=== PATIENT | female | born 1985 | race Two or more races ===

== ENCOUNTER 2020-07-17 09:49 | Emergency (ER) | payer MEDICAID, SELFPAY ==
[2020-07-17 09:57] VITALS: BP 174/89; PULSE 73; RESP 16; TEMP 36.7; O2SAT 99; BMI 36.7
--- NOTE | 2020-07-17 10:32 | ED.GENADULT ---
HPI - General Adult General Chief complaint: Neck Pain/Injury Stated complaint: SWOLLEN GLANDS Time Seen by Provider: 07/17/20 10:29 History of Present Illness HPI narrative: Patient complains of swollen glands that are mildly painful on the right side of her neck for past 2 days, she has no sore throat no ear pain no toothache no fever and denies any other complaint This started 2 days ago, pain is mild, she has not tried to treat it in any way, it does not radiate Related Data Previous Rx's Medication Instructions Recorded amoxicillin 500 mg PO TID #21 cap 07/17/20 ibuprofen 600 mg PO Q6H PRN #20 tab 07/17/20 Allergies Allergy/AdvReac Type Severity Reaction Status Date / Time Sulfa (Sulfonamide Allergy Unknown HIVES Unverified 06/03/20 18:21 Antibiotics) [SULFA(SULFONAMIDE ANTIBIOTICS)] sulfa Allergy Intermediate Swelling Uncoded 07/17/20 09:59 Review of Systems Review of Systems: There is no fever no chills no difficulty breathing no difficulty swallowing no sore throat no ear pain no sinus pain no nausea no vomiting no cough no rash PMFSH Past Medical History Source: nursing notes reviewed Medical History (Updated 07/17/20 @ 10:39 by CIARRA Holbrook) GERD (gastroesophageal reflux disease) Hiatal hernia Migraines Social History Social History Advance Directives: No Advance Directives Information Provided: No Physical Exam Vital Signs: Vital Signs: Vital Signs Temp Pulse Resp BP Pulse Ox 07/17/20 09:57 98.1 F 73 16 174/89 H 99 Body Mass Index 36.7 Patient is A&O x3 comfortable no distress The ear exam was normal on both sides with normal tympanic membrane no swelling of the ear canal The eyes were clear no redness or discharge The pharynx was moist, very mild redness no tonsillar swelling no exudate no drooling no impairment of breathing or swallowing the neck exam there was right submandibular swelling consistent with lymphadenopathy, there was no abscess no redness no warmth, the voice was normal, the neck was supple The chest was clear to auscultation bilaterally, no respiratory distress The heart no murmurs Abdomen soft nontender next item line the extremities full range of motion x4 The skin no rashes and the neuro no focal deficit Discharge Plan Discharge Clinical Impression: Lymphadenopathy Patient Disposition: Home, Self-Care Instructions: Lymphadenopathy (ED) Additional Instructions: Follow with primary doctor in 1 week if not better Return to ER any time any worse condition or concerns Prescriptions: New amoxicillin 500 mg capsule 500 mg PO TID Qty: 21 RF: 0 ibuprofen 600 mg tablet 600 mg PO Q6H PRN (Reason: fever or pain) Qty: 20 RF: 0 Interventions: ED Discharge Assessment Last Done: 07/17/20 10:43 Discharge Date/Time: 07/17/20 10:45
== END 2020-07-17 10:45 | disposition home or self-care (01) ==
PROVIDERS: Physician Assistant Medical; Emergency Provider Emergency Medicine; PCP Internal Medicine
DX: R59.1 Generalized enlarged lymph nodes (principal); Z11.59 Encounter for screening for other viral diseases
CPT/HCPCS: 99283; U0003

== ENCOUNTER 2020-09-12 19:33 | Emergency (ER) | payer MEDICAID, SELFPAY ==
--- NOTE | 2020-09-12 | ECG_ITS ---
Test Reason : CHEST PAIN Blood Pressure : / mmHG Vent. Rate : 070 BPM Atrial Rate : 070 BPM P-R Int : 112 ms QRS Dur : 084 ms QT Int : 414 ms P-R-T Axes : 057 049 041 degrees QTc Int : 447 ms Normal sinus rhythm Normal ECG When compared with ECG of 07-JUN-2020 21:19, No significant change was found Referred By: Generic ED Physician Electronically Signed By:GONZALO MACARIO
[2020-09-12 19:54] VITALS: BP 145/87; PULSE 86; RESP 16; TEMP 36.8; O2SAT 95; BMI 87.0
--- NOTE | 2020-09-12 22:26 | ED.GENADULT ---
HPI - General Adult General Chief complaint: General Medical Stated complaint: high bp, headache Time Seen by Provider: 09/12/20 21:59 Source: patient Mode of arrival: ambulatory History of Present Illness HPI narrative: This is a 35-year-old female with significant past medical history hypertension and states that she has been out of her medication 3 months and said that today she began experiencing a ?tension-like headache? without any associated speech/visual/unilateral numbness/tingling/weakness but then later in the day after using over the counter Tylenol she began experiencing some mild dizziness and describes some central chest pressure that was nonradiating in character and not associated nausea or diaphoresis. Patient states she does suffer from anxiety and had checked her blood pressure and found that it was 140s over 100s. Otherwise, patient states that she has been in her usual state of health. Related Data Previous Rx's Medication Instructions Recorded amoxicillin 500 mg PO TID #21 cap 07/17/20 ibuprofen 600 mg PO Q6H PRN #20 tab 07/17/20 Allergies Allergy/AdvReac Type Severity Reaction Status Date / Time Sulfa (Sulfonamide Allergy Unknown HIVES Verified 09/12/20 20:10 Antibiotics) [SULFA(SULFONAMIDE ANTIBIOTICS)] sulfa Allergy Intermediate Swelling Uncoded 07/17/20 09:59 Review of Systems Review of Systems: Pertinent positives and negatives as stated in HPI 10 point review of systems is otherwise negative. PMFSH Past Medical History Medical History (Updated 09/12/20 @ 23:38 by Deborah Blevins MD) GERD (gastroesophageal reflux disease) Hiatal hernia Hypertension Migraines Social History Social History Alcohol intake: never Smoked in Last 30 Days: No Use of substances other than those prescribed or required for medical reasons: No Advance Directives: No Physical Exam Vital Signs: Vital Signs: Last Vital Signs Temp 99.0 F 09/12/20 22:33 Pulse 70 09/12/20 22:33 Resp 20 09/12/20 22:33 BP 138/72 09/12/20 22:33 Pulse Ox 100 09/12/20 22:33 Body Mass Index 87.0 VITAL SIGNS: Reviewed. GENERAL: Well developed, well nourished, in no acute distress. HEAD: Normocephalic/atraumatic, EYES: PERRLA, EOMI intact without pain OROPHARYNX: no oral lesions noted, posterior pharynx clear and non-erythematous without noted tonsillar enlargement/erythema/exudates NECK: Supple, no adenopathy LUNGS: Normal breath sounds. No adventitious sounds or accessory muscle use. SpO2<95> CARDIOVASCULAR: Regular rate and rhythm without noted murmurs, no JVD or lower extremity edema. ABDOMEN: Soft, non-tender, non-distended with bowel sounds. No rigidity. No guarding. No palpable masses or hernias noted NEUROLOGIC: Alert and oriented x 4. Strength and sensation to light touch were grossly intact x 4. Course Course Course Narrative: This is a 35-year-old female with history and clinical presentation consistent with likely headache secondary to stressors described in patient's life with job and bills, but will rule out end-organ complications associated with elevated blood pressure. -labs, UA, EKG, U preg On review of all investigations no acute fine, high sensitivity troponin within normal limits and no changes on EKG. In addition no evidence of protein within the urine or changes in renal function. All results and findings were discussed with the patient at bedside and she was strongly encouraged to reach out to [facility] in the morning for blood pressure medication. Medical Decision Making Lab Data Result diagrams: 09/12/20 22:18 09/12/20 22:18 Labs: Lab Results 09/12/20 09/12/20 09/12/20 Range/Units 22:17 22:18 22:18 WBC 11.6 H (4.8-10.8) X10*3/uL RBC 3.83 L (4.20-5.50) X10*6/uL Hgb 11.3 L (12.0-16.0) g/dl Hct 35.2 L (37-47) % MCV 91.9 (80-98) fL MCH 29.5 (27.0-33.0) pg MCHC 32.1 (31.0-35.0) g/dl RDW 12.3 (11.0-16.0) % Plt Count 414 H (160-400) X10*3/uL MPV 9.8 (9.4-12.3) fL Immature Gran % (Auto) 0.3 (0.0-0.4) % Neut % (Auto) 46.4 (45-73) % Lymph % (Auto) 43.3 H (20-40) % [place] % (Auto) 6.0 (2-11) % Eos % (Auto) 3.5 (0-4) % Baso % (Auto) 0.5 (0-2) % Lymph # (Auto) 5.0 H (1.2-4.9) X10*3/uL [place] # (Auto) 0.7 (0.1-1.2) X10*3/uL Eos # (Auto) 0.4 (0.0-0.4) X10*3/uL Baso # (Auto) 0.1 (0.0-0.2) X10*3/uL Abs Immat Gran (auto) 0.03 (0.00-0.03) X10*3/uL Absolute Neuts (auto) 5.4 (2.0-8.3) X10*3/uL Absolute Nucleated RBC 0.000 (0.0-0.012) X10*3/uL Nucleated RBC % (auto) 0.0 (0.0-0.2) /100WBC Smear Tech's Comments VERIFIED Sodium 138 (135-145) mmol/L Potassium 4.3 (3.3-5.1) mmol/l Chloride 104 (96-108) mmol/L Carbon Dioxide 27 (22-29) mmol/L Anion Gap 11 L (12-20) BUN 12 (9-16) mg/dL Creatinine 0.78 (0.5-1.4) mg/dL Estim Creat Clear Calc 202.1 Estimated GFR > 60 Random Glucose 79 (60-115) mg/dL Calcium 8.5 (8.4-10.2) mg/dL Total Bilirubin 0.2 (0.0-1.0) mg/dL AST 15 (5-31) U/L ALT 13 (0-31) U/L Alkaline Phosphatase 65 (39-117) U/L Troponin I High Sens (<3.5-17.0) ng/L Total Protein 7.1 (6.5-8.0) g/dL Albumin 4.1 (3.5-5.0) g/dL Urine Color YELLOW Urine Appearance CLEAR Urine pH 6.5 (5.0-8.0) Ur Specific [place] 1.025 (1.005-1.025) Urine Protein NEG (NEG-TRACE) MG/DL Urine Glucose (UA) NEG (NEG) MG/DL Urine Ketones NEG (NEG) MG/DL Urine Blood NEG (NEG) Urine Nitrite NEG (NEG) Ur Leukocyte Esterase NEG (NEG) Urine Test NEGATIVE (NEGATIVE) 09/12/20 Range/Units 22:18 WBC (4.8-10.8) X10*3/uL RBC (4.20-5.50) X10*6/uL Hgb (12.0-16.0) g/dl Hct (37-47) % MCV (80-98) fL MCH (27.0-33.0) pg MCHC (31.0-35.0) g/dl RDW (11.0-16.0) % Plt Count (160-400) X10*3/uL MPV (9.4-12.3) fL Immature Gran % (Auto) (0.0-0.4) % Neut % (Auto) (45-73) % Lymph % (Auto) (20-40) % [place] % (Auto) (2-11) % Eos % (Auto) (0-4) % Baso % (Auto) (0-2) % Lymph # (Auto) (1.2-4.9) X10*3/uL [place] # (Auto) (0.1-1.2) X10*3/uL Eos # (Auto) (0.0-0.4) X10*3/uL Baso # (Auto) (0.0-0.2) X10*3/uL Abs Immat Gran (auto) (0.00-0.03) X10*3/uL Absolute Neuts (auto) (2.0-8.3) X10*3/uL Absolute Nucleated RBC (0.0-0.012) X10*3/uL Nucleated RBC % (auto) (0.0-0.2) /100WBC Smear Tech's Comments Sodium (135-145) mmol/L Potassium (3.3-5.1) mmol/l Chloride (96-108) mmol/L Carbon Dioxide (22-29) mmol/L Anion Gap (12-20) BUN (9-16) mg/dL Creatinine (0.5-1.4) mg/dL Estim Creat Clear Calc Estimated GFR Random Glucose (60-115) mg/dL Calcium (8.4-10.2) mg/dL Total Bilirubin (0.0-1.0) mg/dL AST (5-31) U/L ALT (0-31) U/L Alkaline Phosphatase (39-117) U/L Troponin I High Sens < 3.5 (<3.5-17.0) ng/L Total Protein (6.5-8.0) g/dL Albumin (3.5-5.0) g/dL Urine Color Urine Appearance Urine pH (5.0-8.0) Ur Specific [place] (1.005-1.025) Urine Protein (NEG-TRACE) MG/DL Urine Glucose (UA) (NEG) MG/DL Urine Ketones (NEG) MG/DL Urine Blood (NEG) Urine Nitrite (NEG) Ur Leukocyte Esterase (NEG) Urine Test (NEGATIVE) ECG Data Attestation: I personally reviewed and interpreted this ECG as follows: Prior ECG tracings: available for review (06/07/2020 no acute changes on comparison) Interpretation: Normal sinus rhythm, HR -70, no evidence of acute ischemia, MD/QRS/QTC are within normal limits. Discharge Plan Discharge Clinical Impression: Hypertension Qualifiers: Hypertension type: unspecified Qualified Code(s): I10 - Essential (primary) hypertension Patient Disposition: Home, Self-Care Instructions: DASH Eating Plan (ED), Heart Healthy Diet (ED), Hypertension (ED) Additional Instructions: Please follow-up with your primary care provider 1st thing in the morning. Please review the dietary changes recommended to assist and blood pressure control. The patient and/or family acknowledge understanding of results (as applicable), diagnosis, treatment plan, need for follow up, and symptoms that should prompt a return to the emergency room. Prescriptions: No Action amoxicillin 500 mg capsule 500 mg PO TID Qty: 21 RF: 0 ibuprofen 600 mg tablet 600 mg PO Q6H PRN (Reason: fever or pain) Qty: 20 RF: 0 Referrals: [facility] [Outside] - 1 day (Patient evaluated in the emergency department for hypertension and states that she has reached out multiple times for refills on her blood pressure medication. Please schedule for re-evaluation and outpatient management of hypertension.)
[2020-09-12 22:33] VITALS: BP 138/72; PULSE 70; RESP 20; TEMP 37.2; O2SAT 100
[2020-09-12 22:36] LABS: Basophils Absolute Auto 0.1 X10*3/uL (0.0-0.2); Basophils Percent Auto 0.5 % (0-2); Eosinophils Absolute Auto 0.4 X10*3/uL (0.0-0.4); Eosinophils Percent Auto 3.5 % (0-4); Hematocrit 35.2 % (37-47); Hemoglobin 11.3 g/dl (12.0-16.0); Imm Gran Abs Auto 0.03 X10*3/uL (0.00-0.03); Imm Gran Pct Auto 0.3 % (0.0-0.4); Lymphocytes Percent Auto 43.3 % (20-40); Mean Corpuscular HGB Conc 32.1 g/dl (31.0-35.0); Mean Corpuscular Hemoglobin 29.5 pg (27.0-33.0); Mean Corpuscular Volume 91.9 fL (80-98); Mean Platelet Volume 9.8 fL (9.4-12.3); Monocytes Absolute Auto 0.7 X10*3/uL (0.1-1.2); Neutrophils Absolute Auto 5.4 X10*3/uL (2.0-8.3); Neutrophils Percent Auto 46.4 % (45-73); Platelet Count 414 X10*3/uL (160-400); Red Blood Count 3.83 X10*6/uL (4.20-5.50); Red Cell Distribution Width 12.3 % (11.0-16.0); SCAN SMEAR FLAG 1; White Blood Count 11.6 X10*3/uL (4.8-10.8)
[2020-09-12 22:37] LABS: Glucose Urine UA NEG (NEG); Leukocyte Esterase Urine NEG (NEG); Nitrite Urine NEG (NEG); PH 6.5 (5.0-8.0); Specific Gravity - Urine 1.025 (1.005-1.025); Urine Blood NEG (NEG); Urine Ketones NEG (NEG); Urine Protein NEG (NEG-TRACE)
[2020-09-12 22:40] LABS: Appearance Urine CLEAR; Color Urine YELLOW; UPreg QC Valid YES; Urine Pregnancy NEGATIVE (NEGATIVE)
[2020-09-12 22:46] LABS: MANUAL DIFF FLAG SCAN
[2020-09-12 23:02] LABS: Alanine Aminotransferase 13 U/L (0-31); Albumin Level 4.1 g/dL (3.5-5.0); Alkaline Phosphatase 65 U/L (39-117); Anion Gap 11 (12-20); Aspartate Amino Transferase 15 U/L (5-31); Bilirubin Total 0.2 mg/dL (0.0-1.0); Blood Urea Nitrogen 12 mg/dL (9-16); Calcium 8.5 mg/dL (8.4-10.2); Carbon Dioxide 27 mmol/L (22-29); Chloride 104 mmol/L (96-108); Creatinine Clr Calc Pharmacy 202.1; Estimated Glomerular Filt Rate > 60; Glucose Random 79 mg/dL (60-115); Potassium 4.3 mmol/l (3.3-5.1); Sodium 138 mmol/L (135-145); Total Protein 7.1 g/dL (6.5-8.0)
[2020-09-12 23:07] LABS: Troponin-I High Sensitivity < 3.5 ng/L (<3.5-17.0)
[2020-09-12 23:16] LABS: SLIDE REVIEW VERIFIED
[2020-09-13] MEDS: Acetaminophen 325 MG TABLET 975 MG PO (00:14)
[2020-09-13 00:15] VITALS: BP 136/85; PULSE 69; RESP 16; O2SAT 99
[2020-09-13] MEDS: Ketorolac Tromethamine 15 MG/ML VIAL IVPUSH (00:15)
== END 2020-09-13 00:42 | disposition home or self-care (01) ==
PROVIDERS: Emergency Provider Student in an Organized Health Care Education/Training Program
DX: I10 Essential (primary) hypertension (principal); R51.9 Headache, unspecified; Z79.899 Other long term (current) drug therapy
CPT/HCPCS: 36415; 80053; 81003; 81025; 84484; 85025; 93005; 96374; 99284; J1885

== ENCOUNTER 2020-09-30 16:45 | Outpatient (REF) | payer MEDICAID, SELFPAY | END 2020-09-30 16:46 | disposition home or self-care (01) | LOC: HO.LAB 16:45 | PROVIDERS: Visit Provider Internal Medicine | DX: Z20.822 Contact with and (suspected) exposure to COVID-19 (principal) | CPT/HCPCS: 36415; C9803; U0003 ==

== ENCOUNTER 2020-10-11 17:14 | Outpatient (REF) | payer MEDICAID, SELFPAY | END 2020-10-11 17:15 | disposition home or self-care (01) | LOC: HO.LAB 17:14 | PROVIDERS: Visit Provider Internal Medicine | DX: Z20.822 Contact with and (suspected) exposure to COVID-19 (principal) | CPT/HCPCS: 36415; C9803; U0003 ==

== ENCOUNTER → 2020-12-13 08:53 | Outpatient (REF) | payer MEDICAID, SELFPAY | LOC: HO.SL 08:53 | PROVIDERS: PCP Internal Medicine; Visit Provider Internal Medicine | DX: I10 Essential (primary) hypertension (principal); R06.81 Apnea, not elsewhere classified | CPT/HCPCS: 95806 ==

== ENCOUNTER 2021-01-15 20:25 | Emergency (ER) | payer MEDICAID, SELFPAY ==
--- NOTE | ~2021-01-15 | XR_ITS ---
EXAMINATION: XR CHEST CLINICAL INFORMATION: Fall with pain on right side COMPARISON: Chest radiograph 06/07/2020 TECHNIQUE: 2 views of the chest were obtained. FINDINGS: No significant abnormality is noted involving the heart, lungs, mediastinum, bony thorax or soft tissues. XR/XR chest 2V IMPRESSION: Unremarkable examination.
--- NOTE | ~2021-01-15 | XR_ITS ---
EXAMINATION: RIGHT FOREARM AND HAND CLINICAL INFORMATION: Fall COMPARISON: None TECHNIQUE: 2 views right forearm, 3 views right hand FINDINGS: There is some angulation of the distal ulna probably secondary to an old fracture. A horizontal sclerotic line is seen in the distal radius cortical break is seen. This may also be secondary to old trauma. No soft tissue swelling is seen in this area. XR/XR hand RT 2V IMPRESSION: No evidence of an acute injury. Possible old healed injuries as described above.
--- NOTE | ~2021-01-15 | XR_ITS ---
EXAMINATION: RIGHT FOREARM AND HAND CLINICAL INFORMATION: Fall COMPARISON: None TECHNIQUE: 2 views right forearm, 3 views right hand FINDINGS: There is some angulation of the distal ulna probably secondary to an old fracture. A horizontal sclerotic line is seen in the distal radius cortical break is seen. This may also be secondary to old trauma. No soft tissue swelling is seen in this area. XR/XR forearm RT 2V IMPRESSION: No evidence of an acute injury. Possible old healed injuries as described above.
[2021-01-15 20:29] VITALS: BP 151/102; PULSE 90; RESP 18; TEMP 37.1; O2SAT 98; BMI 39.4
--- NOTE | 2021-01-15 22:00 | ED_ITS ---
HPI - General Adult General Chief complaint: Fall Stated complaint: HAND INJ Time Seen by Provider: 01/15/21 21:45 Source: patient Mode of arrival: ambulatory Limitations: no limitations History of Present Illness HPI narrative: 35-year-old female he who presents emergency department for evaluation of right chest and right upper extremity injury from a fall. Patient states she was on a 2nd step of a step stool when her cat and dog got in a fight over food. The patient then stepped off the stool but fell landing on her right chest, right hand and right forearm. She states he developed immediate pain in her right hand with swelling, pain in her right forearm and right chest. She states that the pain is constant in all of these areas, worse with movement and the chest is worse with breathing. States the pain is [id number] in intensity. The patient denies shortness of breath or dyspnea on exertion. She denies any head or neck injury from the fall. Related Data Previous Rx's Medication Instructions Recorded amoxicillin 500 mg PO TID #21 cap 07/17/20 ibuprofen 600 mg PO Q6H PRN #20 tab 07/17/20 Allergies Allergy/AdvReac Type Severity Reaction Status Date / Time Sulfa (Sulfonamide Allergy Unknown HIVES Verified 01/15/21 20:36 Antibiotics) [SULFA(SULFONAMIDE ANTIBIOTICS)] sulfa Allergy Intermediate Swelling Uncoded 01/15/21 20:36 Review of Systems Review of Systems: Yes all other systems are reviewed and are negative [facility] Past Medical History [facility] Narrative: The patient states she is a former smoker and quit smoking 1 year prior, she smoked 1/2 pack of cigarettes per day x7 years. She drinks alcohol once a month. She states she smokes marijuana daily. 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 Medical History GERD (gastroesophageal reflux disease) Hiatal hernia Hypertension Migraines Social History Social History Alcohol intake: never Advance Directives: No Advance Directives Information Provided: Yes Physical Exam Vital Signs: Vital Signs: Last Vital Signs Temp 98.7 F 01/15/21 20:29 Pulse 90 01/15/21 20:29 Resp 18 01/15/21 20:29 BP 151/102 H 01/15/21 20:29 Pulse Ox 98 01/15/21 20:29 Body Mass Index 39.4 Const: General: cooperative and healthy appearing Orientation/consciousness: oriented to person and oriented to place Limitations: no limitations HENMT: Head: Yes normal to inspection, Yes normocephalic and Yes atraumatic Ears: external ears normal General nose exam: Normal external nose present Face and sinus: Yes normal facial exam Mouth: Normal oral and palatal mucosa present Throat: Yes posterior oropharynx normal Eyes: Periorbital: periorbital findings normal Eyelids: Yes eyelids normal Conjunctivae: conjunctivae normal Sclerae: sclerae normal Corneas: corneas normal Pupils: Equal, round and reactive pupils present Direct Ophthalmoscopy: normal light reflex Neck: Neck: Yes full ROM, Yes no lymphadenopathy, Yes no meningeal signs, Yes trachea midline and Yes supple Chest: Chest palpation & inspection: normal inspection of the chest and tenderness (Right lateral chest wall moderate tenderness) Resp: Effort & Inspection: normal respiratory effort and able to speak in complete sentences Auscultation: clear to auscultation bilaterally Cardio: Rate: regular rate Rhythm: regular rhythm Heart sounds: S1 normal heart sound present, S2 normal heart sound present and no murmurs GI: Inspection: Yes normal to inspection Palpation (GI): Soft to palpation, nontender, no guarding, not rigid and No hepatosplenomegaly present : General: Yes no CVA tenderness Back/Spine/Pelvis: Back: no CVA tenderness Cervical Spine: normal cervical lordosis Thoracic/Lumbar Spine: thoracic and lumbar spine normal to inspection Skin: Lesions: no lesions Rashes: no rashes Wounds: no wounds Neuro: General: oriented to person, oriented to place and no meningeal signs Cranial nerves: Yes CN's II-XII intact bilaterally and Yes Equal, round and reactive pupils present Cognition (Neuro): normal cognition Motor exam (neuro): 5/5 motor strength present throughout Extrem: Other: There is soft tissue swelling of the dorsal aspect of the right hand over the 2nd and 3rd MCP joints, she is able to make a fist without any difficulty, there is tenderness with palpation of the area of swelling. She has tenderness with palpation of her forearm diffusely with no ecchymosis or swelling. General: Yes normal to inspection and Yes full ROM Psych: Appearance: well kempt Mental Status: mental status grossly normal Speech and movement: Normal speech and movement present Affect: normal affect Attitude: cooperative Thought process: Normal thought process present Thought content: Normal thought content present Course Course Course Narrative: 35-year-old female who presents emergency department for evaluation of right chest, right hand and right forearm injury after falling off the 2nd step of a step stool. The patient's physical examination did reveal soft tissue swelling of the right dorsal aspect of the hand and tenderness with palpation of her right forearm. She also has right lateral chest wall tenderness. Chest x-ray revealed no displaced fracture no pneumothorax. Right forearm x-ray reveals possible old fracture of the distal ulnar with no acute fracture. The right hand x-ray revealed no acute fracture. These films were interpreted by the radiologist and reviewed by me. I did discuss these findings with the patient. She was advised to take Tylenol and ibuprofen for pain. She was advised to use rest, ice and elevation. The patient was given a work note to return to work on 01/17/2021 with limited use of the right arm, not lifting more than 5 lb. Discharge Plan Discharge Clinical Impression: Fall Qualifiers: Encounter type: initial encounter Qualified Code(s): W19.XXXA - Unspecified fall, initial encounter Contusion of hand, right Qualifiers: Encounter type: initial encounter Qualified Code(s): S60.221A - Contusion of right hand, initial encounter Contusion of forearm, right Qualifiers: Encounter type: initial encounter Qualified Code(s): S50.11XA - Contusion of right forearm, initial encounter Contusion of right chest wall Qualifiers: Encounter type: initial encounter Qualified Code(s): S20.211A - Contusion of right front wall of thorax, initial encounter Patient Disposition: Home, Self-Care Instructions: Rib Contusion (ED) Additional Instructions: Contusion Instructions: Take Motrin(ibuprofen) 200 mg pills, 3 pills every 6 hours as needed for pain. Take Tylenol(acetaminophen) 500 mg pills, 2 pills every 6 hours as needed for pain. Apply ice for 15 minutes to the areas that hurt. Do this 4-6 times a day to help reduce the pain and swelling. Continue with normal activities as tolerated since staying in bed and not moving around will make your pain worse. Please return to the Emergency Department or see your doctor immediately if your symptoms get worse or if you develop any new symptoms that are concerning you. Follow up with your doctor in 2 day. Please read the other printed discharge instructions on rib contusions. Prescriptions: No Action amoxicillin 500 mg capsule 500 mg PO TID Qty: 21 RF: 0 ibuprofen 600 mg tablet 600 mg PO Q6H PRN (Reason: fever or pain) Qty: 20 RF: 0 Stand Alone Forms: Work/School Release
== END 2021-01-15 22:24 | disposition home or self-care (01) ==
PROVIDERS: Emergency Provider Emergency Medicine Emergency Medical Services; PCP Internal Medicine
DX: S60.221A Contusion of right hand, initial encounter (principal); S20.211A Contusion of right front wall of thorax, initial encounter; S50.11XA Contusion of right forearm, initial encounter; M79.641 Pain in right hand; W17.89XA Other fall from one level to another, initial encounter; Y93.9 Activity, unspecified; Y92.000 Kitchen of unspecified non-institutional (private) residence as the place of occurrence of the external cause; Y99.9 Unspecified external cause status; Z79.899 Other long term (current) drug therapy
CPT/HCPCS: 71046; 73090; 73120; 99284

== ENCOUNTER 2021-01-27 15:18 | Outpatient (REF) | payer MEDICAID, SELFPAY | END 2021-01-27 15:19 | disposition home or self-care (01) | LOC: HO.LAB 15:18 | PROVIDERS: Visit Provider Internal Medicine | DX: Z20.822 Contact with and (suspected) exposure to COVID-19 (principal) | CPT/HCPCS: C9803; U0003; U0005 ==

== ENCOUNTER 2021-02-27 08:44 | Emergency (ER) | payer MEDICAID, SELFPAY ==
--- NOTE | ~2021-02-27 | XR_ITS ---
EXAMINATION: CR CHEST CLINICAL INFORMATION: Sudden onset left-sided chest pain. Rule out pneumothorax. COMPARISON: Chest x-ray dated 01/15/2021. TECHNIQUE: 2 views of the chest were obtained. FINDINGS: EKG leads overlie the chest. The cardiomediastinal silhouette is within normal limits in size. Lungs bilaterally are symmetrically expanded and clear. No focal consolidation, effusion or pneumothorax is seen. Bony structures are unremarkable. XR/XR chest 2V IMPRESSION: Unremarkable examination.
[2021-02-27 10:00] VITALS: BP 182/91; PULSE 79; RESP 16; TEMP 36.6; O2SAT 100; BMI 39.4
--- NOTE | 2021-02-27 10:09 | ECG_ITS ---
Test Reason : CP Blood Pressure : / mmHG Vent. Rate : 067 BPM Atrial Rate : 067 BPM P-R Int : 120 ms QRS Dur : 082 ms QT Int : 422 ms P-R-T Axes : 064 038 039 degrees QTc Int : 445 ms Normal sinus rhythm with sinus arrhythmia Normal ECG When compared with ECG of 12-SEP-2020 20:00, No significant change was found Referred By: Raffi Akhtar Electronically Signed By:GONZALO MACARIO
--- NOTE | 2021-02-27 10:10 | ED.GENADULT ---
HPI - General Adult General Chief complaint: Chest Pain Stated complaint: chest pain Time Seen by Provider: 02/27/21 09:53 Source: patient Mode of arrival: ambulatory Limitations: no limitations History of Present Illness HPI narrative: 35-year-old female who presents emergency department for evaluation of chest pain. The patient works as a [employer]. 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 She states she has had a similar throat tightness in the past when she has went into SVT. A nurse at the facility checked her blood pressure and it was 158/87 with a pulse of 87. Patient states she then developed a tightness in her chest. She points to her sternum and left anterior chest when asked to localize the pain. The pain was worse with breathing did not change with movement. The pain was 5/10 at its worst. She did have diaphoresis. She states that the pain is intermittent and currently her pain is 2/10. She does feel short of breath but denied dyspnea on exertion. The patient did travel to [place] on 01/31/2021 (approximately 4 weeks prior). She states that it was a 4 hour trip with a layover in [place]. She states that over the past 2-3 days she has noted some discomfort in her lower extremities and some fatigue when she walks upstairs. Related Data Previous Rx's Medication Instructions Recorded amoxicillin 500 mg PO TID #21 cap 07/17/20 ibuprofen 600 mg PO Q6H PRN #20 tab 07/17/20 Allergies Allergy/AdvReac Type Severity Reaction Status Date / Time Sulfa (Sulfonamide Allergy Unknown HIVES Verified 01/15/21 20:36 Antibiotics) [SULFA(SULFONAMIDE ANTIBIOTICS)] sulfa Allergy Intermediate Swelling Uncoded 01/15/21 20:36 Review of Systems Review of Systems: Yes all other systems are reviewed and are negative [facility] Past Medical History [facility] Narrative: Past medical history sent for hypertension, GERD, hiatal hernia, SVT. Past surgical history: Cholecystectomy and x2. Social history: The patient is and her , Dl, is here in the emergency department with her. She is a former smoker and quit 1 year prior. She smoked for 8 years. She does drink alcohol occasionally, she denies drug use. Medical History GERD (gastroesophageal reflux disease) Hiatal hernia Hypertension Migraines Social History Social History Alcohol intake: never Advance Directives: Yes Advance Directives Information Provided: Yes Advance Directives on File: No Physical Exam Vital Signs: Vital Signs: Last Vital Signs Temp 97.9 F 02/27/21 10:00 Pulse 68 02/27/21 11:40 Resp 22 H 02/27/21 11:40 BP 146/77 H 02/27/21 11:40 Pulse Ox 97 02/27/21 11:40 Body Mass Index 39.4 Const: General: cooperative Nutritional Appearance: overweight Orientation/consciousness: oriented to person and oriented to place Limitations: no limitations HENMT: Head: Yes normal to inspection, Yes normocephalic and Yes atraumatic Ears: external ears normal General nose exam: Normal external nose present Face and sinus: Yes normal facial exam Mouth: Normal oral and palatal mucosa present Throat: Yes posterior oropharynx normal Eyes: Periorbital: periorbital findings normal Eyelids: Yes eyelids normal Conjunctivae: conjunctivae normal Sclerae: sclerae normal Corneas: corneas normal Pupils: Equal, round and reactive pupils present Direct Ophthalmoscopy: normal light reflex Neck: Neck: Yes full ROM, Yes no lymphadenopathy, Yes no meningeal signs, Yes trachea midline and Yes supple Chest: Chest palpation & inspection: normal inspection of the chest and tenderness (Left anterior chest, moderate) Resp: Effort & Inspection: normal respiratory effort and able to speak in complete sentences Auscultation: clear to auscultation bilaterally Cardio: Rate: regular rate Rhythm: regular rhythm Heart sounds: S1 normal heart sound present, S2 normal heart sound present and no murmurs GI: Inspection: Yes normal to inspection Palpation (GI): Soft to palpation, nontender, no guarding, not rigid and No hepatosplenomegaly present : General: Yes no CVA tenderness Back/Spine/Pelvis: Back: no CVA tenderness Cervical Spine: normal cervical lordosis Thoracic/Lumbar Spine: thoracic and lumbar spine normal to inspection and paraspinal muscle tenderness (Mid thoracic region, moderate) Skin: Lesions: no lesions Rashes: no rashes Wounds: no wounds Neuro: General: oriented to person, oriented to place and no meningeal signs Cranial nerves: Yes CN's II-XII intact bilaterally and Yes Equal, round and reactive pupils present Cognition (Neuro): normal cognition Motor exam (neuro): 5/5 motor strength present throughout Extrem: Other: Lower extremities appear to be symmetric in size, there is no calf tenderness, negative Homans sign bilaterally, extremities are neurovascular intact. Psych: Appearance: well kempt Mental Status: mental status grossly normal Speech and movement: Normal speech and movement present Affect: normal affect Attitude: cooperative Thought process: Normal thought process present Thought content: Normal thought content present Course Course Course Narrative: 35-year-old female who presents emergency department for evaluation of sudden onset of sternal and left-sided chest pain that began at 5:45 a.m. 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 The patient states the pain has been intermittent and was 5/10 at its worse, pain was associated with diaphoresis, shortness of breath, and the pain is pleuritic. Vital signs revealed an elevated blood pressure 182/91 with the O2 saturation of 100% on room air. Respiratory rate and pulse were normal. Examination did reveal tenderness with palpation of her sternum, left chest wall and posterior thorax area. Differential includes was not limited to pneumothorax, pulmonary embolism, costochondritis, esophagitis/GERD. I ordered a CBC, CMP, troponin, D-dimer, EKG and two view chest x-ray. Patient's discomfort will be treated with Toradol 30 mg IV. I also ordered normal saline x1 L. 1316: The patient's pain improved after receiving the IV Toradol. The patient's laboratory evaluation [place] [address] and a low H&H 11.1 and 34.1, these findings are chronic. The patient's D-dimer was not elevated which is a good negative predictive for pulmonary embolism. High sensitivity troponin was below detectable limits. Patient's EKG and chest x-ray were unremarkable. Patient's presentation is consistent with acute costochondritis and I did discuss this with the patient. She was advised to take Tylenol and ibuprofen, follow-up with PCP and return if her symptoms are worse. She was given verbal and printed instructions and discharged home. She was given a note not return to work for 3 days. Medical Decision Making Lab Data Result diagrams: 02/27/21 10:41 02/27/21 10:41 Labs: Lab Results 02/27/21 02/27/21 02/27/21 Range/Units 10:41 10:41 10:41 WBC 15.2 H (4.8-10.8) X10*3/uL RBC 3.81 L (4.20-5.50) X10*6/uL Hgb 11.1 L (12.0-16.0) g/dl Hct 34.1 L (37-47) % MCV 89.5 (80-98) fL MCH 29.1 (27.0-33.0) pg MCHC 32.6 (31.0-35.0) g/dl RDW 12.6 (11.0-16.0) % Plt Count 385 (160-400) X10*3/uL MPV 9.6 (9.4-12.3) fL Immature Gran % (Auto) 0.3 (0.0-0.4) % Neut % (Auto) 57.9 (45-73) % Lymph % (Auto) 34.2 (20-40) % [place] % (Auto) 5.6 (2-11) % Eos % (Auto) 1.7 (0-4) % Baso % (Auto) 0.3 (0-2) % Lymph # (Auto) 5.2 H (1.2-4.9) X10*3/uL [place] # (Auto) 0.9 (0.1-1.2) X10*3/uL Eos # (Auto) 0.3 (0.0-0.4) X10*3/uL Baso # (Auto) 0.1 (0.0-0.2) X10*3/uL Abs Immat Gran (auto) 0.05 H (0.00-0.03) X10*3/uL Absolute Neuts (auto) 8.8 H (2.0-8.3) X10*3/uL Absolute Nucleated RBC 0.000 (0.0-0.012) X10*3/uL Nucleated RBC % (auto) 0.0 (0.0-0.2) /100WBC Smear Tech's Comments VERIFIED D-Dimer < 200 NG/ML Sodium 138 (135-145) mmol/L Potassium 4.0 (3.3-5.1) mmol/L Chloride 104 (96-108) mmol/L Carbon Dioxide 25 (22-29) mmol/L Anion Gap 13 (12-20) BUN 9 (9-16) mg/dL Creatinine 0.71 (0.5-1.4) mg/dL Estim Creat Clear Calc 132.6 Estimated GFR > 60 Random Glucose 78 (60-115) mg/dL Calcium 9.3 D (8.4-10.2) mg/dL Total Bilirubin 0.4 (0.0-1.0) mg/dL AST 15 (5-31) U/L ALT 11 (0-31) U/L Alkaline Phosphatase 65 (39-117) U/L Troponin I High Sens (<3.5-17.0) ng/L Total Protein 7.1 (6.5-8.0) g/dL Albumin 4.1 (3.5-5.0) g/dL Lipase 26 (8-78) U/L Urine Color Urine Appearance Urine pH (5.0-8.0) Ur Specific [place] (1.005-1.025) Urine Protein (NEG-TRACE) MG/DL Urine Glucose (UA) (NEG) MG/DL Urine Ketones (NEG) MG/DL Urine Blood (NEG) Urine Nitrite (NEG) Ur Leukocyte Esterase (NEG) 02/27/21 02/27/21 Range/Units 10:41 11:42 WBC (4.8-10.8) X10*3/uL RBC (4.20-5.50) X10*6/uL Hgb (12.0-16.0) g/dl Hct (37-47) % MCV (80-98) fL MCH (27.0-33.0) pg MCHC (31.0-35.0) g/dl RDW (11.0-16.0) % Plt Count (160-400) X10*3/uL MPV (9.4-12.3) fL Immature Gran % (Auto) (0.0-0.4) % Neut % (Auto) (45-73) % Lymph % (Auto) (20-40) % [place] % (Auto) (2-11) % Eos % (Auto) (0-4) % Baso % (Auto) (0-2) % Lymph # (Auto) (1.2-4.9) X10*3/uL [place] # (Auto) (0.1-1.2) X10*3/uL Eos # (Auto) (0.0-0.4) X10*3/uL Baso # (Auto) (0.0-0.2) X10*3/uL Abs Immat Gran (auto) (0.00-0.03) X10*3/uL Absolute Neuts (auto) (2.0-8.3) X10*3/uL Absolute Nucleated RBC (0.0-0.012) X10*3/uL Nucleated RBC % (auto) (0.0-0.2) /100WBC Smear Tech's Comments D-Dimer NG/ML Sodium (135-145) mmol/L Potassium (3.3-5.1) mmol/L Chloride (96-108) mmol/L Carbon Dioxide (22-29) mmol/L Anion Gap (12-20) BUN (9-16) mg/dL Creatinine (0.5-1.4) mg/dL Estim Creat Clear Calc Estimated GFR Random Glucose (60-115) mg/dL Calcium (8.4-10.2) mg/dL Total Bilirubin (0.0-1.0) mg/dL AST (5-31) U/L ALT (0-31) U/L Alkaline Phosphatase (39-117) U/L Troponin I High Sens < 3.5 (<3.5-17.0) ng/L Total Protein (6.5-8.0) g/dL Albumin (3.5-5.0) g/dL Lipase (8-78) U/L Urine Color YELLOW Urine Appearance CLEAR Urine pH 6.0 (5.0-8.0) Ur Specific [place] 1.025 (1.005-1.025) Urine Protein NEG (NEG-TRACE) MG/DL Urine Glucose (UA) NEG (NEG) MG/DL Urine Ketones NEG (NEG) MG/DL Urine Blood NEG (NEG) Urine Nitrite NEG (NEG) Ur Leukocyte Esterase NEG (NEG) ECG Data Attestation: I personally reviewed and interpreted this ECG as follows: Interpretation: Normal sinus rhythm with sinus arrhythmia with a rate of 67, normal NE interval, QR restorationism and QTC interval. Inverted T-wave in V1. No ST segment elevation or depression. No PACs or PVCs. This is a normal EKG. Discharge Plan Discharge Clinical Impression: Acute costochondritis Patient Disposition: Home, Self-Care Instructions: Costochondritis (ED) Additional Instructions: Your laboratory evaluation revealed an elevated white blood cell count and anemia, this is not new in you have had similar values in the past. Your D-dimer and troponin were not elevated which is reassuring. Your EKG and chest x-ray were normal. Your symptoms and presentation are consistent with acute costochondritis which is inflammation of the joints of your chest. Take ibuprofen 200 mg pills, 3 pills every 6 hours as needed for pain. Take Tylenol (acetaminophen) 500 mg pills, 2 pills every 4 to 6 hours as needed for pain. Follow-up with your doctor in 2 days. Please return to the emergency department if your symptoms get worse or if you develop any symptoms that are concerning to you. Prescriptions: No Action amoxicillin 500 mg capsule 500 mg PO TID Qty: 21 RF: 0 ibuprofen 600 mg tablet 600 mg PO Q6H PRN (Reason: fever or pain) Qty: 20 RF: 0 Stand Alone Forms: Work/School Release
[2021-02-27] MEDS: Ketorolac Tromethamine 30 MG/ML VIAL IVPUSH (10:44)
[2021-02-27] MEDS: 0.9 % Sodium Chloride 1,000 ML 999 ML IV (10:46)
[2021-02-27 10:47] LABS: Basophils Absolute Auto 0.1 X10*3/uL (0.0-0.2); Basophils Percent Auto 0.3 % (0-2); Eosinophils Absolute Auto 0.3 X10*3/uL (0.0-0.4); Eosinophils Percent Auto 1.7 % (0-4); Hematocrit 34.1 % (37-47); Hemoglobin 11.1 g/dl (12.0-16.0); Imm Gran Abs Auto 0.05 X10*3/uL (0.00-0.03); Imm Gran Pct Auto 0.3 % (0.0-0.4); Lymphocytes Absolute Auto 5.2 X10*3/uL (1.2-4.9); Lymphocytes Percent Auto 34.2 % (20-40); MANUAL DIFF FLAG SCAN; Mean Corpuscular HGB Conc 32.6 g/dl (31.0-35.0); Mean Corpuscular Hemoglobin 29.1 pg (27.0-33.0); Mean Corpuscular Volume 89.5 fL (80-98); Mean Platelet Volume 9.6 fL (9.4-12.3); Monocytes Absolute Auto 0.9 X10*3/uL (0.1-1.2); Monocytes Percent Auto 5.6 % (2-11); Neutrophils Absolute Auto 8.8 X10*3/uL (2.0-8.3); Neutrophils Percent Auto 57.9 % (45-73); Platelet Count 385 X10*3/uL (160-400); Red Blood Count 3.81 X10*6/uL (4.20-5.50); Red Cell Distribution Width 12.6 % (11.0-16.0); SCAN SMEAR FLAG 1; White Blood Count 15.2 X10*3/uL (4.8-10.8)
[2021-02-27 10:56] LABS: D Dimer < 200 NG/ML
[2021-02-27 11:05] LABS: SLIDE REVIEW VERIFIED
[2021-02-27 11:10] LABS: Alanine Aminotransferase 11 U/L (0-31); Albumin Level 4.1 g/dL (3.5-5.0); Alkaline Phosphatase 65 U/L (39-117); Anion Gap 13 (12-20); Aspartate Amino Transferase 15 U/L (5-31); Bilirubin Total 0.4 mg/dL (0.0-1.0); Blood Urea Nitrogen 9 mg/dL (9-16); Calcium 9.3 mg/dL (8.4-10.2); Carbon Dioxide 25 mmol/L (22-29); Chloride 104 mmol/L (96-108); Creatinine Clr Calc Pharmacy 132.6; Estimated Glomerular Filt Rate > 60; Glucose Random 78 mg/dL (60-115); Lipase 26 U/L (8-78); Sodium 138 mmol/L (135-145); Total Protein 7.1 g/dL (6.5-8.0)
[2021-02-27 11:14] LABS: Troponin-I High Sensitivity < 3.5 ng/L (<3.5-17.0)
[2021-02-27 11:40] VITALS: BP 146/77; PULSE 68; RESP 22; O2SAT 97
[2021-02-27 11:52] LABS: Appearance Urine CLEAR; Color Urine YELLOW; Glucose Urine UA NEG (NEG); Leukocyte Esterase Urine NEG (NEG); Nitrite Urine NEG (NEG); Specific Gravity - Urine 1.025 (1.005-1.025); Urine Blood NEG (NEG); Urine Ketones NEG (NEG); Urine Protein NEG (NEG-TRACE)
== END 2021-02-27 13:31 | disposition home or self-care (01) ==
PROVIDERS: Emergency Provider Emergency Medicine Emergency Medical Services; PCP Internal Medicine
DX: M94.0 Chondrocostal junction syndrome [Tietze] (principal); I10 Essential (primary) hypertension
CPT/HCPCS: 36415; 71046; 80053; 81003; 83690; 84484; 85025; 85379; 87040; 93005; 96361; 96374; 99284; J1885

== ENCOUNTER 2021-03-17 14:02 | Outpatient (REF) | payer MEDICAID, SELFPAY ==
--- NOTE | ~2021-03-17 | US_ITS ---
EXAMINATION: US PELVIS COMPLETE US PELVIS ENDOVAGINAL CLINICAL INFORMATION: Excessive bleeding and premenopausal patient COMPARISON: Ultrasound 12/08/2017 TECHNIQUE: Transabdominal and transvaginal images of the pelvis were obtained. FINDINGS: UTERUS: Anteverted. Normal size and contour, measuring 10.1 x 3.8 x 5.3 cm (cervix to fundus x AP x transverse). Uniform, homogeneous endometrium measures 1.1 cm in width. 2.2 x 1.6 x 2.4 cm leiomyoma of the left uterine fundus. Incidentally noted nabothian cysts in the cervix. RIGHT OVARY: Normal size and echogenicity measuring 2.8 x 1.8 x 1.3 cm. 3.4 cc volume. LEFT OVARY: Normal size and echogenicity measuring 4.5 x 1.5 x 3.8 cm. Crenulated 1.6 x 1.7 x 1.8 cm corpus luteum cyst seen in the left ovary. FREE FLUID: No pelvic free fluid. US/US pelvic and transvaginal IMPRESSION: Small fundal leiomyoma again seen. Endometrium 1.1 cm in thickness, normal in a premenopausal female patient. Normal appearance of the ovaries.
== END 2021-03-17 14:03 | disposition home or self-care (01) ==
LOC: HO.US 14:02
PROVIDERS: Visit Provider Advanced Practice Midwife
DX: N92.4 Excessive bleeding in the premenopausal period (principal)
CPT/HCPCS: 76830; 76856

== ENCOUNTER 2021-05-13 16:35 | Emergency (ER) | payer MEDICAID, SELFPAY ==
[2021-05-13 17:19] VITALS: BP 158/81; PULSE 70; RESP 18; TEMP 37; O2SAT 98; BMI 39.4
--- NOTE | 2021-05-13 20:00 | ED_ITS ---
HPI - Back Pain/Injury General Chief Complaint: Back Pain/Injury Stated Complaint: lower back pain Time Seen by Provider: 05/13/21 18:51 Source: patient Mode of arrival: ambulatory Limitations: no limitations History of Present Illness HPI Narrative: Patient comes emergency room complaining of a sciatica flare-up. Patient states it has been going on for about 4 days. Patient has history of 2 years of sciatica, states she has had physical therapy in the past. Patient has a coming appointment with her primary care physician, patient is to be scheduled for physical therapy again and for an MRI. Patient has been taking Flexeril at home with no relief. Patient denies urinary such fecal incontinence/retention. Related Data Previous Rx's Medication Instructions Recorded amoxicillin 500 mg capsule 500 mg PO TID #21 cap 07/17/20 ibuprofen 600 mg tablet 600 mg PO Q6H PRN #20 tab 07/17/20 ketorolac 10 mg tablet 10 mg PO Q6H PRN 5 Days #7 tab 05/13/21 Allergies Allergy/AdvReac Type Severity Reaction Status Date / Time Sulfa (Sulfonamide Allergy Unknown HIVES Verified 05/13/21 17:18 Antibiotics) [SULFA(SULFONAMIDE ANTIBIOTICS)] sulfa Allergy Intermediate Swelling Uncoded 01/15/21 20:36 Review of Systems Review of Systems: Constitutional : No Weight loss, No Fever, No Chills, No Night Sweats, No Fatigue, No Malaise ENT/Mouth : No Hearing loss, No Ear Pain, No Nasal Congestion, No Sinus Pain, No Hoarseness, No sore throat, No Rhinorrhea, No Swallowing Difficulty Eyes: No Eye Pain, No Swelling, No Redness, No Foreign Body, No Discharge, No Vision Changes Cardiovascular : No Chest Pain, No SOB, No Dyspnea on Exertion, No Orthopnea, No Edema, No Palpitations Respiratory : No Cough, No Sputum, No Wheezing, No Smoke Exposure, No Dyspnea Gastrointestinal : No Nausea, No Vomiting, No Diarrhea, No Constipation, No abdominal Pain, No Hematochezia, No Melena Genitourinary : no irregular bleeding, No Dysuria, No Urinary Frequency, No Hematuria, No Urinary Incontinence, No Urgency, No Flank Pain, No Urinary Flow Changes, No Hesitancy Musculoskeletal : Complaining of back pain, sciatica radiating towards the right leg with certain movements. Skin : No Skin Lesions, No rash Neuro : No Weakness, No Numbness, No Paresthesias, No Loss of Consciousness, No Dizziness, No Headache Psych : No Anxiety/Panic, No Depression, No SI/HI/AH/VH, No Social Issues, Heme/Lymph: No Bruising, No Bleeding,No Lymphadenopathy Endocrine : No Polyuria, No Polydipsia, No Temperature Intolerance PMF Past Medical History Medical History GERD (gastroesophageal reflux disease) Hiatal hernia Hypertension Migraines Social History Social History Alcohol intake: never Advance Directives: No Advance Directives Information Provided: No Patient : No Physical Exam Vital Signs: Vital Signs: Last Vital Signs Temp 98.6 F 05/13/21 17:19 Pulse 70 05/13/21 17:19 Resp 18 05/13/21 17:19 BP 158/81 H 05/13/21 17:19 Pulse Ox 98 05/13/21 17:19 Body Mass Index 39.4 Const: Other: Appearance: Alert. Oriented X3. No acute distress. Eyes: Pupils equal, round and reactive to light. ENT: Pharynx normal. Neck: Normal inspection. Neck supple. No lymph nodes noted. No crepitus CVS: Normal heart rate and rhythm. Pulses normal. Normal S1 and S2 Respiratory: No respiratory distress. Breath sounds normal. No Wheezing. No rales Abdomen: Soft and nontender. No rigidity. No distention. Back: Positive straight leg raise test on the right side Skin: Skin warm and dry. Normal skin color. Normal skin turgor. Extremities: No lower extremity edema. No lower extremity edema. No Lacerations. No Rash Neuro: Oriented X 3. No motor deficit. No sensory deficit. Moving all extermi ties. No slurred speech. Course Course Course Narrative: Patient received 1 dose of Toradol and Decadron. Patient instructed not to take any NSAIDs, only Tylenol for breakthrough pain. Discharge Plan Discharge Clinical Impression: Sciatica Qualifiers: Laterality: right Qualified Code(s): M54.31 - Sciatica, right side Patient Disposition: Home, Self-Care Instructions: Sciatica (ED) Additional Instructions: Please follow-up with your primary care physician tomorrow. If you have any worsening or new symptoms, please return to the emergency room or call 911 Prescriptions: New ketorolac 10 mg tablet 10 mg PO Q6H PRN (Reason: pain) 5 Days Qty: 7 RF: 0 No Action amoxicillin 500 mg capsule 500 mg PO TID Qty: 21 RF: 0 ibuprofen 600 mg tablet 600 mg PO Q6H PRN (Reason: fever or pain) Qty: 20 RF: 0
[2021-05-13] MEDS: dexAMETHasone sod phosphate 4 MG/ML VIAL IM (20:12)
[2021-05-13] MEDS: Ketorolac Tromethamine 15 MG/ML VIAL 30 MG IM (20:13)
[2021-05-13 20:23] VITALS: BP 153/84; PULSE 58; RESP 18; O2SAT 100
== END 2021-05-13 20:29 | disposition home or self-care (01) ==
PROVIDERS: Emergency Provider Emergency Medicine; PCP Internal Medicine
DX: M54.41 Lumbago with sciatica, right side (principal); I10 Essential (primary) hypertension
CPT/HCPCS: 96372; 99284; J1100; J1885

== ENCOUNTER 2021-06-11 00:38 | Emergency (ER) | payer MEDICAID, SELFPAY ==
[2021-06-11 01:37] VITALS: BMI 41.3
--- NOTE | 2021-06-11 06:41 | ED_ITS ---
HPI - Back Pain/Injury General Chief Complaint: Back Pain/Injury Stated Complaint: Sciatica pain Time Seen by Provider: 06/11/21 06:41 History of Present Illness HPI Narrative: Patient 36-year-old female with a history of sciatica presents today with having back pain radiating down right leg. There is no bowel urinary incontinence. There is no focal weakness. Patient claims pain is very similar to previous bouts of back pain. The pain is 10/10. Worse with movement. Related Data Previous Rx's Medication Instructions Recorded amoxicillin 500 mg capsule 500 mg PO TID #21 cap 07/17/20 ibuprofen 600 mg tablet 600 mg PO Q6H PRN #20 tab 07/17/20 ketorolac 10 mg tablet 10 mg PO Q6H PRN 5 Days #7 tab 05/13/21 cyclobenzaprine 10 mg tablet 10 mg PO TID PRN #14 tab 06/11/21 ibuprofen 400 mg tablet 400 mg PO Q6H PRN #20 tab 06/11/21 oxycodone 5 mg tablet 5 mg PO Q8H PRN #7 tab 06/11/21 Allergies Allergy/AdvReac Type Severity Reaction Status Date / Time Sulfa (Sulfonamide Allergy Unknown HIVES Verified 06/11/21 01:37 Antibiotics) [SULFA(SULFONAMIDE ANTIBIOTICS)] sulfa Allergy Intermediate Swelling Uncoded 06/11/21 01:37 Review of Systems Review of Systems: No bowel urinary incontinence been no focal weakness. Yes all other systems are reviewed and are negative [facility] Past Medical History Attestation statement: The following information was validated with the patient. Medical History GERD (gastroesophageal reflux disease) Hiatal hernia Hypertension Migraines Social History Social History Alcohol intake: never Advance Directives: No Physical Exam Vital Signs: Vital Signs: Last Vital Signs Temp 96.1 F L 06/11/21 06:47 Pulse 98 06/11/21 06:47 Resp 18 06/11/21 06:55 BP 142/83 H 06/11/21 06:47 Pulse Ox 96 06/11/21 06:47 Body Mass Index 41.3 Appearance: Alert. Oriented X3. No acute distress. Eyes: Pupils equal, round and reactive to light. ENT: Pharynx normal. Neck: Normal inspection. Neck supple. No lymph nodes noted. No crepitus CVS: Normal heart rate and rhythm. Pulses normal. Normal S1 and S2 Respiratory: No respiratory distress. Breath sounds normal. No Wheezing. No rales Abdomen: Soft and nontender. No rigidity. No distention. good BS x4 Skin: Skin warm and dry. Normal skin color. Normal skin turgor. Extremities: Sensation in the lower extremity is intact. Movement of the leg on the right showed extreme pain.. Reflexes equal at the patella. Neuro: Oriented X 3. No motor deficit. No sensory deficit. Moving all extermities. No slurred speech MDM - Back Pain/Injury MDM Narrative Medical decision making narrative: No bowel urinary incontinence. Pain is similar to previous bouts of sciatica. We will go ahead and give pain medications. Will have patient follow-up on an outpatient basis. She really has a schedule MRI for Sunday. Currently patient is in stable condition with discharge home. Differential Diagnosis Differential diagnosis: Likely lumbar radiculopathy, sciatica, strain of lumbar region, renal colic, pyelonephritis, thoracic back pain, AAA and discitis Discharge Plan Discharge Clinical Impression: Sciatica Patient Disposition: Home, Self-Care Instructions: Sciatica (ED) Prescriptions: New cyclobenzaprine 10 mg tablet 10 mg PO TID PRN (Reason: pain) Qty: 14 RF: 0 ibuprofen 400 mg tablet 400 mg PO Q6H PRN (Reason: pain) Qty: 20 RF: 0 oxycodone 5 mg tablet 5 mg PO Q8H PRN (Reason: pain) Qty: 7 RF: 0 No Action amoxicillin 500 mg capsule 500 mg PO TID Qty: 21 RF: 0 ibuprofen 600 mg tablet 600 mg PO Q6H PRN (Reason: fever or pain) Qty: 20 RF: 0 ketorolac 10 mg tablet 10 mg PO Q6H PRN (Reason: pain) 5 Days Qty: 7 RF: 0 Referrals: Cathi Robert MD [Primary Care Provider] - 2 days Stand Alone Forms: Work/School Release Interventions: ED Discharge Assessment Last Done: 06/11/21 09:03
[2021-06-11 06:47] VITALS: BP 142/83; PULSE 98; RESP 18; TEMP 35.6; O2SAT 96
[2021-06-11 06:55] VITALS: RESP 18
[2021-06-11] MEDS: HYDROmorphone HCl 1 MG/ML SYRINGE IM (06:55)
[2021-06-11] MEDS: Ketorolac Tromethamine 15 MG/ML VIAL 30 MG IM (06:57)
== END 2021-06-11 09:04 | disposition home or self-care (01) ==
PROVIDERS: Emergency Provider Emergency Medicine Emergency Medical Services; PCP Internal Medicine
DX: M54.41 Lumbago with sciatica, right side (principal); Z79.899 Other long term (current) drug therapy
CPT/HCPCS: 96372; 99283; 99284; J1170; J1885

== ENCOUNTER 2021-06-15 17:44 | Outpatient (REF) | payer MEDICAID, SELFPAY ==
--- NOTE | ~2021-06-15 | MR_ITS ---
EXAMINATION: MR LUMBAR SPINE WITHOUT CONTRAST CLINICAL INFORMATION: 36-year-old with lumbago and right sciatica. COMPARISON: 07/17/2017 MRI TECHNIQUE: MRI of the lumbar spine was obtained using routine sequences without contrast. FINDINGS: Coronal Alignment: Normal. Sagittal Alignment: Normal. Lumbosacral Junction: Transitional anatomy with lowest lumbar-like segment labeled as S1, which is partially lumbarized with a rudimentary S1-S2 intervertebral disc space. Vertebral Bodies: Normal height. Disc Spaces and Endplates: The intervertebral disc space heights and signal are well maintained throughout the lumbar spine, stable in appearance. No significant spondylosis. Endplates appear intact. Spinal Canal: No abnormal developmental findings. Bone Marrow: There is a small zone of marrow edema at the anterosuperior corner of T12 which is slightly more prominent than on the previous study, with a similar finding at the anterosuperior corner of T11 which is not imaged on the previous exam. There is minor anterior marginal endplate spurring at these levels. Otherwise, bone marrow signal intensity appears within normal limits. Conus Medullaris: Terminates at L2. Morphology and signal is normal. Intradural Nerve Roots: Within normal limits. S1-S2 is a rudimentary intervertebral disc space. There is no significant spinal canal or neural foraminal compromise at this level. 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 L5-S1: Disc space height and signal are well maintained without disc bulge or herniation. There is janv-[id number] bilateral facet arthropathy, stable in appearance with mild bilateral neural foraminal stenosis, unchanged without significant canal stenosis. L4-L5: There is a tiny inferior foraminal disc protrusion on the left on the current study without neural impingement. There is mild right-sided and minimal left-sided facet arthrosis, stable in appearance without significant canal or neural foraminal stenosis. L3-L4: There is minor facet arthropathy without significant disc bulge or herniation and no significant canal or neural foraminal stenosis, stable in appearance. L2-L3: Disc space height and signal are well maintained without significant disc bulge or herniation and no significant spondylosis, facet arthrosis, canal or neural foraminal stenosis. L1-L2: Disc space height and signal are well maintained without significant disc bulge or herniation and no significant spondylosis, facet arthrosis, canal or neural foraminal stenosis. Paraspinal/Retroperitoneal: The paravertebral soft tissues appear unremarkable. MR/MR lumbar spine wo con IMPRESSION: 1. Gisz-lf-sdplazkh degrees of lower lumbar facet arthropathy, stable in appearance, with mild bilateral neural foraminal narrowing at L5-S1, unchanged. 2. Tiny inferior foraminal disc protrusion on the left at L4-L5 without neural impingement on current study. 3. Focal marrow edema at the anterosuperior corners of T12 and T11 with minor degrees of spondylosis at these levels. These may reflect type I degenerative marrow signal changes, but cannot exclude spondyloarthropathy.
== END 2021-06-15 17:45 | disposition home or self-care (01) ==
LOC: HO.MRI 17:44
PROVIDERS: PCP Internal Medicine; Visit Provider Emergency Medicine
DX: M47.16 Other spondylosis with myelopathy, lumbar region (principal); M54.41 Lumbago with sciatica, right side
CPT/HCPCS: 72148

== ENCOUNTER → 2021-06-22 15:42 | Outpatient (BNVA) | payer MEDICAID, SELFPAY | PROVIDERS: PCP Internal Medicine; Visit Provider Anesthesiology | DX: M46.1 Sacroiliitis, not elsewhere classified (principal); M53.3 Sacrococcygeal disorders, not elsewhere classified; E66.01 Morbid (severe) obesity due to excess calories; G89.4 Chronic pain syndrome | CPT/HCPCS: 99202 ==

== ENCOUNTER 2021-08-02 06:40 | Outpatient (REF) | payer MEDICAID, SELFPAY ==
--- NOTE | ~2021-08-02 | FL_ITS ---
EXAMINATION: XR FLUOROSCOPY WITH IMAGES CLINICAL INFORMATION: M53.3 - Sacrococcygeal disorders, not elsewhere classified COMPARISON: MRI lumbar spine 06/15/2021 TECHNIQUE: Fluoroscopy performed by Dr. Boby Agarwal. Fluoroscopy time: 0.1 minutes DAP: 2.63 Gycm2 Images: 1 FINDINGS: Spinal needle overlies lower right SI joint. There is contrast in the periarticular soft tissues with probable early intra-articular contrast. No vasculature communication appreciated. FL/FL guidance in treatment room IMPRESSION: Fluoroscopy for pain management procedure.
== END 2021-08-02 06:41 | disposition home or self-care (01) ==
LOC: HO.RADIR 06:40
PROVIDERS: Visit Provider Anesthesiology
DX: M53.3 Sacrococcygeal disorders, not elsewhere classified (principal); M46.1 Sacroiliitis, not elsewhere classified; G89.4 Chronic pain syndrome; E66.01 Morbid (severe) obesity due to excess calories
CPT/HCPCS: J3300; Q9967

== ENCOUNTER 2021-10-08 23:35 | Emergency (ER) | payer MEDICAID, SELFPAY ==
--- NOTE | ~2021-10-08 | XR_ITS ---
EXAMINATION: XR CHEST CLINICAL INFORMATION: Chest pain COMPARISON: 02/27/2021 TECHNIQUE: Frontal view of the chest was obtained. FINDINGS: The lungs are well expanded. There is no focal consolidation, edema, or effusion. No pneumothorax. The cardiomediastinal silhouette is within normal limits. No acute osseous abnormality. XR/XR chest 1V IMPRESSION: Clear lungs.
--- NOTE | 2021-10-09 | ECG_ITS ---
Test Reason : CP Blood Pressure : / mmHG Vent. Rate : 068 BPM Atrial Rate : 068 BPM P-R Int : 108 ms QRS Dur : 080 ms QT Int : 438 ms P-R-T Axes : 058 039 057 degrees QTc Int : 465 ms Sinus rhythm with sinus arrhythmia with short LA Nonspecific T wave abnormality Prolonged QT Abnormal ECG When compared with ECG of 27-FEB-2021 10:24, No significant change was found Referred By: Generic ED Physician Electronically Signed By:Levi Ward
[2021-10-09 00:14] VITALS: BP 169/81; PULSE 67; RESP 18; TEMP 36.4; O2SAT 100; BMI 39.4
[2021-10-09] MEDS: Losartan Potassium 25 MG TABLET PO (00:35)
[2021-10-09 00:49] LABS: Hematocrit 33.4 % (37.0-47.0); Hemoglobin 11.1 g/dl (12.0-16.0); Mean Corpuscular HGB Conc 33.2 g/dl (31.0-35.0); Mean Corpuscular Hemoglobin 30.7 pg (27.0-33.0); Mean Corpuscular Volume 92.3 fL (80.0-98.0); Mean Platelet Volume 9.6 fL (9.4-12.3); Platelet Count 396 X10*3/uL (160-400); Red Blood Count 3.62 X10*6/uL (4.20-5.50); White Blood Count 12.9 X10*3/uL (4.8-10.8)
[2021-10-09 01:02] LABS: Anion Gap 13 (12-20); Blood Urea Nitrogen 12 mg/dL (9-16); Calcium 9.2 mg/dL (8.4-10.2); Carbon Dioxide 26 mmol/L (22-29); Chloride 104 mmol/L (96-108); Creatinine Clr Calc Pharmacy 112.4; Estimated Glomerular Filt Rate > 60; Glucose Random 97 mg/dL (60-115); Potassium 3.9 mmol/L (3.3-5.1); Sodium 139 mmol/L (135-145)
[2021-10-09 01:07] LABS: Troponin-I High Sensitivity < 3.5 ng/L (<3.5-17.0)
[2021-10-09 01:08] LABS: Atypical Lymph Absolute Manual 0.6 x10*3/uL; Atypical Lymphs Percent Manual 5 % (0-6); Eosinophils Absolute Manual 0.1 X10*3/uL (0.0-0.4); Eosinophils Percent Manual 1 % (0-4); Lymphocytes Percent Manual 47 % (20-40); Monocytes Absolute Manual 0.5 X10*3/uL (0.1-1.2); Monocytes Percent Manual 4 % (2-11); Neutrophils Percent Manual 43 % (45-73)
[2021-10-09 01:09] LABS: Band Neutrophils Percent 0 % (3-5); Neutrophils Absolute Manual 5.5 X10*3/uL (2.0-8.3)
[2021-10-09 01:10] LABS: Platelet Estimate NORMAL (NORMAL); Platelet Morphology Comment NORMAL; RBC Morphology NORMAL
[2021-10-09 01:12] LABS: Lymphocytes Absolute Manual 6.1 X10*3/uL (1.2-4.9)
[2021-10-09 03:50] VITALS: BP 149/93; PULSE 62; RESP 18; O2SAT 100
--- NOTE | 2021-10-09 03:56 | ED_ITS ---
HPI - Chest Pain General Chief Complaint: Chest Pain Stated Complaint: High Blood Pressure/Headache Time Seen by Provider: 10/09/21 00:25 Source: patient Mode of arrival: ambulatory History of Present Illness HPI narrative: 36-year-old female with history of hypertension and SVT presents from home stating that she was having some midsternal chest pain radiating the left arm and left back and pain is described as pressure and intermittently stabbing. Patient also describes I pressure and headache. She states she has been on diltiazem consistently for her SVT and has been well controlled, but the losartan is a new medication and she has had significant difficulty in getting the doctor's office to refill her prescription. Otherwise she denies any fevers or chills. Related Data Previous Rx's Medication Instructions Recorded amoxicillin 500 mg capsule 500 mg PO TID #21 cap 07/17/20 ibuprofen 600 mg tablet 600 mg PO Q6H PRN #20 tab 07/17/20 ketorolac 10 mg tablet 10 mg PO Q6H PRN 5 Days #7 tab 05/13/21 cyclobenzaprine 10 mg tablet 10 mg PO TID PRN #14 tab 06/11/21 ibuprofen 400 mg tablet 400 mg PO Q6H PRN #20 tab 06/11/21 oxycodone 5 mg tablet 5 mg PO Q8H PRN #7 tab 06/11/21 losartan 25 mg tablet 25 mg PO DAILY #14 tab 10/09/21 Allergies Allergy/AdvReac Type Severity Reaction Status Date / Time Sulfa (Sulfonamide Allergy Unknown HIVES Verified 10/09/21 00:14 Antibiotics) [SULFA(SULFONAMIDE ANTIBIOTICS)] sulfa Allergy Intermediate Swelling Uncoded 10/09/21 00:14 Review of Systems Review of Systems: Pertinent positives and negatives as stated in HPI 10 point review of systems is otherwise negative. [facility] Past Medical History Source: nursing notes reviewed Medical History Chronic pain syndrome GERD (gastroesophageal reflux disease) Hiatal hernia Hypertension Migraines Morbid obesity Sacroiliac joint dysfunction of right side Sacroiliitis Social History Social History Alcohol intake: never Advance Directives: No Patient : No Physical Exam Vital Signs: Vital Signs: Last Vital Signs Temp 97.5 F 10/09/21 00:14 Pulse 62 10/09/21 03:50 Resp 18 10/09/21 03:50 BP 149/93 H 10/09/21 03:50 Pulse Ox 100 10/09/21 03:50 BMI result Body Mass Index 39.4 VITAL SIGNS: Reviewed. GENERAL: Well developed, well nourished, in no acute distress. HEAD: Normocephalic/atraumatic EYES: PERRLA, EOMI LUNGS: Normal breath sounds. No adventitious sounds or accessory muscle use. SpO2<100> CARDIOVASCULAR: Regular rate and rhythm without noted murmurs, no JVD or lower extremity edema. ABDOMEN: Soft, non-tender, non-distended with bowel sounds. MUSCULOSKELETAL: No tenderness, deformities, or effusions noted on gross inspection. EXTREMITIES: No cyanosis, clubbing or edema. SKIN: Inspection of the skin reveals no rashes NEUROLOGIC: Alert and oriented x 4. Strength and sensation to light touch were grossly intact x 4, no facial asymmetry, no pronator drift, cranial nerves 2-12 grossly intact. Course Course Course Narrative: 36-year-old female with history and clinical presentation consistent with poorly controlled hypertension due to difficulty in obtaining medications. For review of all investigations there are no acute findings and patient was provided with a dose of her a new prescription antihypertensive with good decrease in blood pressure. On re-evaluation patient states that she feels much better. She will be discharged home in stable condition with instructions follow-up with her primary care provider and will be provided with a 2 week prescription of losartan. MDM - Chest Pain Lab Data Result diagrams: 10/09/21 00:40 10/09/21 00:40 Labs: Lab Results 10/09/21 10/09/21 10/09/21 Range/Units 00:40 00:40 00:40 WBC 12.9 H (4.8-10.8) X10*3/uL RBC 3.62 L (4.20-5.50) X10*6/uL Hgb 11.1 L (12.0-16.0) g/dl Hct 33.4 L (37.0-47.0) % MCV 92.3 (80.0-98.0) fL MCH 30.7 (27.0-33.0) pg MCHC 33.2 (31.0-35.0) g/dl RDW 13.0 (11.0-16.0) % Plt Count 396 (160-400) X10*3/uL MPV 9.6 (9.4-12.3) fL Immature Gran % (Auto) Cancelled Neut % (Auto) Cancelled Lymph % (Auto) Cancelled [place] % (Auto) Cancelled Eos % (Auto) Cancelled Baso % (Auto) Cancelled Lymph # (Auto) Cancelled [place] # (Auto) Cancelled Eos # (Auto) Cancelled Baso # (Auto) Cancelled Abs Immat Gran (auto) Cancelled Absolute Neuts (auto) Cancelled Absolute Nucleated RBC 0.000 (0.0-0.012) X10*3/uL Nucleated RBC % (auto) 0.0 (0.0-0.2) /100WBC Neutrophils % (Manual) 43 L (45-73) % Band Neutrophils % 0 L (3-5) % Lymphocytes % (Manual) 47 H (20-40) % Atypical Lymphs % (Man) 5 (0-6) % Monocytes % (Manual) 4 (2-11) % Eosinophils % (Manual) 1 (0-4) % Abs Neuts (Manual) 5.5 (2.0-8.3) X10*3/uL Lymphocytes # (Manual) 6.1 H (1.2-4.9) X10*3/uL Atyp Lymphs # (Manual) 0.6 x10*3/uL Monocytes # (Manual) 0.5 (0.1-1.2) X10*3/uL Eosinophils # (Manual) 0.1 (0.0-0.4) X10*3/uL Platelet Estimate NORMAL (NORMAL) Plt Morphology Comment NORMAL RBC Morphology NORMAL Sodium 139 (135-145) mmol/L Potassium 3.9 (3.3-5.1) mmol/L Chloride 104 (96-108) mmol/L Carbon Dioxide 26 (22-29) mmol/L Anion Gap 13 (12-20) BUN 12 (9-16) mg/dL Creatinine 0.83 (0.5-1.4) mg/dL Estim Creat Clear Calc 112.4 Estimated GFR > 60 Random Glucose 97 (60-115) mg/dL Calcium 9.2 (8.4-10.2) mg/dL Troponin I High Sens < 3.5 (<3.5-17.0) ng/L ECG Data ECG #1: Attestation: I personally reviewed and interpreted this ECG as follows: Prior ECG tracings: available for review Interpretation: Sinus rhythm, HR -68, no STEMI, MN/QRS/QTC are within normal limits. Discharge Plan Discharge Clinical Impression: Hypertension Patient Disposition: Home, Self-Care Instructions: DASH Eating Plan (ED), Hypertension (ED) Additional Instructions: 1. Resume all home medications as prescribed. Please monitor the amount of salt intake. In addition, please use caution with ibuprofen/Motrin/Aleve/naproxen as these may contribute to elevated blood pressure. 2. Please follow-up with your primary care provider on Sunday morning to confirm prescription for high blood pressure has been sent to your pharmacy. Return to the ER for worsening of symptoms. Prescriptions: New losartan 25 mg tablet 25 mg PO DAILY Qty: 14 RF: 0 No Action amoxicillin 500 mg capsule 500 mg PO TID Qty: 21 RF: 0 ibuprofen 600 mg tablet 600 mg PO Q6H PRN (Reason: fever or pain) Qty: 20 RF: 0 ketorolac 10 mg tablet 10 mg PO Q6H PRN (Reason: pain) 5 Days Qty: 7 RF: 0 cyclobenzaprine 10 mg tablet 10 mg PO TID PRN (Reason: pain) Qty: 14 RF: 0 ibuprofen 400 mg tablet 400 mg PO Q6H PRN (Reason: pain) Qty: 20 RF: 0 oxycodone 5 mg tablet 5 mg PO Q8H PRN (Reason: pain) Qty: 7 RF: 0 Referrals: Cathi Robert MD [Primary Care Provider] - 2 days
== END 2021-10-09 05:31 | disposition home or self-care (01) ==
PROVIDERS: Emergency Provider Student in an Organized Health Care Education/Training Program; PCP Internal Medicine
DX: I10 Essential (primary) hypertension (principal); R51.9 Headache, unspecified
CPT/HCPCS: 36415; 71045; 80048; 84484; 85007; 85025; 85027; 93005; 99283; 99284

== ENCOUNTER 2021-11-25 10:26 | Emergency (ER) | payer MEDICAID, SELFPAY ==
[2021-11-25 10:57] VITALS: BP 151/83; PULSE 74; RESP 18; TEMP 36.8; O2SAT 98; BMI 39.4
--- NOTE | 2021-11-25 11:44 | ED.FALL ---
HPI - Fall General Chief Complaint: Fall Stated Complaint: fell down stairs body injuries Time Seen by Provider: 11/25/21 11:43 History of Present Illness HPI Narrative: Patient complains of right-sided neck and trapezius pain and right sided low back and gluteal pain after she tripped going down stairs and fell down sliding on her buttocks and back about 10 steps No head injury no loss of consciousness no numbness weakness or tingling no radiation of pain Related Data Previous Rx's Medication Instructions Recorded amoxicillin 500 mg capsule 500 mg PO TID #21 cap 07/17/20 ibuprofen 600 mg tablet 600 mg PO Q6H PRN #20 tab 07/17/20 ketorolac 10 mg tablet 10 mg PO Q6H PRN 5 Days #7 tab 05/13/21 cyclobenzaprine 10 mg tablet 10 mg PO TID PRN #14 tab 06/11/21 ibuprofen 400 mg tablet 400 mg PO Q6H PRN #20 tab 06/11/21 oxycodone 5 mg tablet 5 mg PO Q8H PRN #7 tab 06/11/21 losartan 25 mg tablet 25 mg PO DAILY #14 tab 10/09/21 acetaminophen 500 mg tablet 1,000 mg PO QID PRN #30 tab 11/25/21 cyclobenzaprine 5 mg tablet 5 mg PO TID PRN #10 tab 11/25/21 ibuprofen 600 mg tablet 600 mg PO Q6H PRN #20 tab 11/25/21 oxycodone 5 mg tablet 5 mg PO Q6H PRN #10 tab 11/25/21 oxycodone 5 mg tablet 5 mg PO Q6H PRN #10 tab 11/25/21 Allergies Allergy/AdvReac Type Severity Reaction Status Date / Time Sulfa (Sulfonamide Allergy Unknown HIVES Verified 11/25/21 10:57 Antibiotics) [SULFA(SULFONAMIDE ANTIBIOTICS)] sulfa Allergy Intermediate Swelling Uncoded 10/09/21 00:14 Review of Systems Review of Systems: Positive for neck and back pain Negatives are no headache no head injury no loss of consciousness no days no confusion no fainting no feeling faint no dizziness no vision changes no numbness weakness or tingling no chest pain no difficulty breathing no abdominal pain no nausea vomiting no changes to bowel or bladder no extremity injuries or pains Yes all other systems are reviewed and are negative PMFSH Past Medical History Source: nursing notes reviewed Medical History Chronic pain syndrome GERD (gastroesophageal reflux disease) Hiatal hernia Hypertension Migraines Morbid obesity Sacroiliac joint dysfunction of right side Sacroiliitis Social History Social History Alcohol intake: never Advance Directives: No Advance Directives Information Provided: No Physical Exam Vital Signs: Vital Signs: Last Vital Signs Temp 98.2 F 11/25/21 10:57 Pulse 74 11/25/21 10:57 Resp 18 11/25/21 10:57 BP 151/83 H 11/25/21 10:57 Pulse Ox 98 11/25/21 10:57 BMI result Body Mass Index 39.4 General appearance is no acute distress Head is normocephalic atraumatic Neck had right-sided soft tissue lateral neck muscle tenderness and trapezius tenderness there was no midline or bony tenderness, range of motion was full The chest is clear to auscultation no chest wall tenderness The abdomen soft nontender Extremities full range of motion x4 The back had right lower soft tissue tenderness, no focal bony tenderness anywhere in the back, there was right gluteal tenderness but no bruising no tenderness over the coccyx the hip had full range of motion Neuro patient walks with a limping gait but balance is normal and good Interaction shows normal comprehension and expression, motor is 5/5 x4 and sensation is intact and symmetrical Course Course Course Narrative: Patient fell downstairs with no evidence of any bony injury or dangerous injury likely bruising and muscle strains is discharged Discharge Plan Discharge Clinical Impression: Neck pain, Back strain Patient Disposition: Home, Self-Care Additional Instructions: There does not seem to be any broken bone or dangerous injury Pain is likely from bruised and strained muscles Follow with primary doctor Return any time any worse condition or any concerns Prescriptions: New acetaminophen 500 mg tablet 1,000 mg PO QID PRN (Reason: pain) Qty: 30 0RF cyclobenzaprine 5 mg tablet 5 mg PO TID PRN (Reason: muscle spasm) Qty: 10 0RF ibuprofen 600 mg tablet 600 mg PO Q6H PRN (Reason: pain) Qty: 20 0RF oxycodone 5 mg tablet 5 mg PO Q6H PRN (Reason: pain) Qty: 10 0RF Rx Instructions: Narcotic, no driving for 6 hours after taking oxycodone 5 mg tablet 5 mg PO Q6H PRN (Reason: pain) Qty: 10 0RF Rx Instructions: Narcotic may cause drowsiness, no driving for 6 hours after taking No Action amoxicillin 500 mg capsule 500 mg PO TID Qty: 21 0RF ibuprofen 600 mg tablet 600 mg PO Q6H PRN (Reason: fever or pain) Qty: 20 0RF ketorolac 10 mg tablet 10 mg PO Q6H PRN (Reason: pain) 5 Days Qty: 7 0RF Rx Instructions: Do not use NSAIDs while taking this medication, only Tylenol as needed cyclobenzaprine 10 mg tablet 10 mg PO TID PRN (Reason: pain) Qty: 14 0RF ibuprofen 400 mg tablet 400 mg PO Q6H PRN (Reason: pain) Qty: 20 0RF oxycodone 5 mg tablet 5 mg PO Q8H PRN (Reason: pain) Qty: 7 0RF losartan 25 mg tablet 25 mg PO DAILY Qty: 14 0RF Stand Alone Forms: Work/School Release
[2021-11-25] MEDS: Ibuprofen 600 MG TABLET PO (12:07)
== END 2021-11-25 12:14 | disposition home or self-care (01) ==
PROVIDERS: Emergency Provider Emergency Medicine; PCP Internal Medicine
DX: S39.012A Strain of muscle, fascia and tendon of lower back, initial encounter (principal); M54.2 Cervicalgia; I10 Essential (primary) hypertension; W10.9XXA Fall (on) (from) unspecified stairs and steps, initial encounter; Y93.9 Activity, unspecified; Y92.9 Unspecified place or not applicable; Y99.9 Unspecified external cause status
CPT/HCPCS: 99283; 99284